=== PATIENT | male | born 1955 | race Caucasian/White ===

== ENCOUNTER 2025-03-27 11:27 | Outpatient (AMB) | payer MEDICARE, SELFPAY ==
--- OUTSIDE RECORDS SUMMARY | 2025-03-27 12:49 | XMS_ITS | Clinical Summary ---
Author Organization [facility] Address [address] [address] Phone Care Team Providers Care Accreditation Manager Name Role Phone Arun Luo MD Primary Care Provider Allergies No known active allergies Medications No known medications Active Problems No known active problems Social History Tobacco Use Types Packs/Day Years Used Date Smoking Tobacco: Never Smokeless Tobacco: Never Alcohol Use Standard Drinks/Week Comments Yes 0 (1 standard drink = 0.6 oz pur e alcohol) social Education Answer Date Recorded Are you interested in more education? Not on valeriano e 12/05/2022 Are you concerned about learning? Not on file 12/05/2022 No 12/05/2022 No 12/05/2022 Digital Access Answer Date Recorded No 01/05/2023 No 01/05/2023 No 01/05/2023 Reliable internet access at home? Not on file 01/05/2023 Device with a working camera? Not on file Comments No Sex and Gender Information Value Date Recorded Sex Assigned at Male 11/30/2018 11:43 AM EDT Legal Sex Male 10:46 AM EDT Gender Identity Male 11/30/2018 11:43 AM EDT Sexual Orientation Straight 11/30/2018 11 :43 AM EDT Last Filed Vital Signs Vital Sign Reading Time Taken Comments Blood Pressure 130/84 11/30/2018 5:37 PM EDT Pulse 67 11/30/2018 5:37 PM EDT Temperature 36.6 C (97.9 F) 11/30/2018 5:37 PM EDT Respiratory Rate 18 11/30/2018 5:37 PM EDT Oxygen Saturation 100% 11/30/2018 5:37 PM EDT Inhaled Oxygen Concentration - - Weight 104.3 kg (230 lb) 11/30/2018 11:39 AM EDT Height 180.3 cm (5' 11 ) 11/30/2018 11:39 AM EDT Body Mass Index 32.08 11/30/2018 11:39 AM EDT Plan of Treatment Not on file Medical Devices Not on file Insurance PPO EPO PPO EPO PPO EPO PPO EPO PPO EPO PPO EPO PPO EPO PPO EPO PPO EPO Member Subscriber Plan / Payer (Ef fective 2015-Present) Name:Ryan Forman Relation to Subscriber:Self Name:Ryan Forman Payer ID:[id number] (NAIC) Type:PPO Address: [facility] [id number] [place] [phone] Care Teams Accreditation Manager Relationship Specialty Start Date End Date Arun Luo MD PCP - General Internal Medicine 11/30/18 Additional Source Comments The information contained in this document represents components of the legal health record. It is not the complete legal health record.[facility]
--- OUTSIDE RECORDS SUMMARY | 2025-03-27 12:49 | XMS_ITS | Clinical Summary ---
Author Organization [facility] Address [address] [place] [address] Care Team Providers Care High Energy Forming Equipment Operator Name Role Phone Arun Luo Primary Care Provider [phone] Allergies No known active allergies Medications No known medications Active Problems No known active problems Social History Tobacco Use Types Packs/Day Years Used Date Smoking Tobacco: Never Smokeless Tobacco: Never Alcohol Use Standard Drinks/Week Comments Yes 0 (1 standard drink = 0.6 oz pur e alcohol) Intimate Partner Violence Answer Date R ecorded Fear of Current or Ex-Partner Not on file Emotionally Abused Not on file 03/31/2023 Physically Abused Not on file 03/31/2023 Sexually Abused Not on file 03/31/2023 Feel Safe at Home Not on file 03/31/2023 Sex and Gender Information Value Date Recorded Sex Assigned at Not on file Legal Sex Male 12:55 AM EDT Gender Identity Not on file Sexual Orientation Not on file Last Filed Vital Signs Vital Sign Reading Time Taken Comments Blood Pressure - - Pulse - - Temperature - - Respiratory Rate - - Oxygen Saturation - - Inhaled Oxygen Concentration - - Weight 86.2 kg (190 lb) 02/13/2014 1:28 PM EDT Height 182.9 cm (6') 02/13/2014 1:28 PM EDT Body Mass Index 25.77 02/13/2014 1:28 PM EDT Plan of Treatment Health Maintenance Due Date Last Done Comments Hepatitis C Screening 1955 DTaP/Tdap/Td (1 - Tdap) 11/20/1973 Pneumococcal 50+ years (1 of 1 - PCV) 11/20/2005 Zoster (Shingrix) (1 of 2) 11/20/2005 COVID-19 Vaccine ( - 2023-2 5 season) 2024 Influenza (#1) 2025 RSV (1 - 1-dose 75+ series) 11/20/2030 Abdominal Aorta Imaging Discontinued HPV Vaccine (No Doses Required) Completed Hep A Aged Out No longer eligi ble based on patient's age to complete this topic Hep B Aged Out No longer eligi ble based on patient's age to complete this topic Hib Aged Out No longer eligi ble based on patient's age to complete this topic Meningococcal ACWY Aged Out No longer eligible based on patient's age to complete this topic Zoster (Zostavax) Discontinued Insurance BC[employer] FEE FOR SERVICE PPO Care Teams High Energy Forming Equipment Operator Relationship Specialty Start Date End Date Arun Luo PCP - General 07/03/09
== END 2025-03-27 11:34 | disposition home or self-care (01) ==
LOC: HO.HMGAL 11:27
PROVIDERS: PCP Internal Medicine; Visit Provider Registered Nurse Emergency
DX: J30.89 Other allergic rhinitis (principal)
CPT/HCPCS: 95117; 95165

== ENCOUNTER 2025-04-17 09:37 | Outpatient (AMB) | payer MEDICARE, SELFPAY ==
--- OUTSIDE RECORDS SUMMARY | 2025-04-17 10:59 | XMS_ITS | Clinical Summary ---
Author Organization [facility] Address [address] [place] [id number] Care Team Providers Care Fire Control System Installer Name Role Phone Arun Luo Primary Care Provider [phone] Allergies No known active allergies Medications No [...] COVID-19 Vaccine ( - 2023-2 5 season) 2025 Influenza (#1) 2025 RSV (1 - 1-dose [...] [employer] FEE FOR SERVICE PPO Care Teams Fire Control System Installer Relationship Specialty Start Date End Date Arun Luo PCP - General 07/03/09
--- OUTSIDE RECORDS SUMMARY | 2025-04-17 10:59 | XMS_ITS | Clinical Summary ---
Author Organization [facility] Address [address] [address] Phone Care Team Providers Care Religious Assistant Name Role Phone Arun Luo MD Primary [...] Name:Ryan Forman Payer ID:[id number] (NAIC) Type:PPO Address: [facility] [id number] [place] [id number] Care Teams Religious Assistant Relationship Specialty Start Date End Date Arun Luo MD PCP - General Internal Medicine 11/30/18 Additional Source Comments The information contained in this document represents components of the legal health record. It is not the complete legal health record.[facility]
--- OUTSIDE RECORDS SUMMARY | 2025-04-17 10:59 | XMS_ITS | Encounter Summary ---
Author Organization [facility] Address [address] [id number] Care Team Providers Care Envelope Stuffer Name Role Phone Arun Luo Primary Care Provider [phone] Reason for Referral * OUTPT PROCEDURES AND DIAGNOSTICS (Routine) - Denied Specialty Diagnoses / Procedures Referred By Ashanti pope Referred To Contact Magnetic Resonance Imaging Diagnoses Patellar tendinitis of left knee Procedures REQUEST FOR MRI NON-FC Jaskaran Garcia MD Referral ID Status Reason Start Date Expiration Date V isits Requested Visits Authorized [id number] Denied Service Not Available at Clinic 03/04/2018 1 0 Encounter Details Date Type Department Care Team (Late st Contact Info) Description 03/04/2018 Orders Only [facility] Orthopedic Surgery-Entrance C [address] [place] [id number] Jaskaran Garcia MD Social History Tobacco Use Types Packs/Day Years Used Date Smoking Tobacco: Never Smokeless Tobacco: Never Alcohol Use Standard Drinks/Week Comments Yes 0 (1 standard drink = 0.6 oz pur e alcohol) Sex and Gender Information Value Date Recorded Sex Assigned at Not on file Legal Sex Male 12:55 AM EDT Gender Identity Not on file Sexual Orientation Not on file documented as of this encounter Plan of Treatment Scheduled Orders Name Type Priority Associated Diagnoses Orde r Schedule REQUEST FOR MRI NON-FC Imaging Routine Patellar tendinitis of left knee Ordered: 03/04/2018 documented as of this encounter Visit Diagnoses Diagnosis Patellar tendinitis of left knee Patellar tendinitis documented in this encounter Care Teams Envelope Stuffer Relationship Specialty Start Date End Date Arun Luo PCP - General 07/03/09 documented as of this encounter
== END 2025-04-17 09:38 | disposition home or self-care (01) ==
LOC: HO.HMGAL 09:37
PROVIDERS: PCP Internal Medicine; Visit Provider Registered Nurse Emergency
DX: J30.89 Other allergic rhinitis (principal)
CPT/HCPCS: 95117; 95165

== ENCOUNTER 2025-05-15 09:02 | Outpatient (AMB) | payer MEDICARE, SELFPAY ==
--- OUTSIDE RECORDS SUMMARY | 2025-05-15 10:04 | XMS_ITS | Encounter Summary ---
Author Organization [facility] Address [address] [id number] Care Team Providers Care Senior Court Office Assistant Name Role Phone Arun Luo Primary Care Provider [phone] Reason for Referral * OUTPT PROCEDURES AND DIAGNOSTICS (Routine) - Denied Specialty Diagnoses / Procedures Referred By Ashanti pope Referred To Contact Magnetic Resonance Imaging Diagnoses Patellar tendinitis of left knee Procedures REQUEST FOR MRI NON-FC Jaskaran Garcia MD Referral ID Status Reason Start Date Expiration Date V isits Requested Visits Authorized [id number] Denied Service Not Available at Clinic 03/04/2018 1 0 Encounter Details Date Type Department Care Team (Late st Contact Info) Description 03/04/2018 Orders Only [facility] Orthopedic Surgery-Entrance C [address] [place] [id number] Jaskaran Garcia MD Social History Tobacco Use [...] tendinitis documented in this encounter Care Teams Senior Court Office Assistant Relationship Specialty Start Date End Date Arun Luo PCP - General 07/03/09 documented as of this encounter
--- OUTSIDE RECORDS SUMMARY | 2025-05-15 10:04 | XMS_ITS | Clinical Summary ---
Author Organization [facility] Address [address] [place] [address] Care Team Providers Care Commercial Real Estate Underwriter Name Role Phone Arun Luo Primary Care Provider [phone] Allergies No known active allergies Medications No [...] [employer]BS FEE FOR SERVICE PPO Care Teams Commercial Real Estate Underwriter Relationship Specialty Start Date End Date Arun Luo PCP - General 07/03/09
--- OUTSIDE RECORDS SUMMARY | 2025-05-15 10:05 | XMS_ITS | Clinical Summary ---
Author Organization [facility] Address [address] [address] Phone Care Team Providers Care Device Engineer Name Role Phone Arun Luo MD Primary [...] Name:Ryan Forman Payer ID:[id number] (NAIC) Type:PPO Address: [facility] [id number] [place] [id number] Care Teams Device Engineer Relationship Specialty Start Date End Date Arun Luo MD PCP - General Internal Medicine 11/30/18 Additional Source Comments The information contained in this document represents components of the legal health record. It is not the complete legal health record.[facility]
== END 2025-05-15 09:45 | disposition home or self-care (01) ==
LOC: HO.HMGAL 09:02
PROVIDERS: PCP Internal Medicine; Visit Provider Registered Nurse Emergency
DX: J30.89 Other allergic rhinitis (principal)
CPT/HCPCS: 95117; 95165

== ENCOUNTER 2025-06-05 10:06 | Outpatient (AMB) | payer MEDICARE, SELFPAY ==
--- OUTSIDE RECORDS SUMMARY | 2025-06-05 12:03 | XMS_ITS | Encounter Summary ---
Author Organization [facility] Address [address] [id number] Care Team Providers Care Regional Safety Manager Name Role Phone Arun Luo Primary Care Provider [phone] Reason for Referral * OUTPT PROCEDURES AND DIAGNOSTICS (Routine) - Denied Specialty Diagnoses / Procedures Referred By Ashanti pope Referred To Contact Magnetic Resonance Imaging Diagnoses Patellar tendinitis of left knee Procedures REQUEST FOR MRI NON-FC Jaskaran Garcia MD Referral ID Status Reason Start Date Expiration Date V isits Requested Visits Authorized [id number] Denied Service Not Available at Clinic 03/04/2018 1 0 Encounter Details Date Type Department Care Team (Late st Contact Info) Description 03/04/[address] [facility] Orthopedic Surgery-Entrance C [address] [place] [id number] Jaskaran Garcia MD Social History Tobacco Use [...] tendinitis documented in this encounter Care Teams Regional Safety Manager Relationship Specialty Start Date End Date Arun Luo PCP - General 07/03/09 documented as of this encounter
--- OUTSIDE RECORDS SUMMARY | 2025-06-05 12:03 | XMS_ITS | Clinical Summary ---
Author Organization [facility] Address [address] [address] Phone Care Team Providers Care Farm Management Adviser Name Role Phone Arun Luo MD Primary [...] Name:Ryan Forman Payer ID:[id number] (NAIC) Type:PPO Address: [facility] [address] [place] [phone] Care Teams Farm Management Adviser Relationship Specialty Start Date End Date Arun Luo MD PCP - General Internal Medicine 11/30/18 Additional Source Comments The information contained in this document represents components of the legal health record. It is not the complete legal health record.[facility]
--- OUTSIDE RECORDS SUMMARY | 2025-06-05 12:03 | XMS_ITS | Clinical Summary ---
Author Organization [facility] Address [address] [place] [address] Care Team Providers Care Research Engineer Name Role Phone Arun Luo Primary Care Provider [phone] Allergies No known active allergies Medications No [...] of 2) 11/20/2005 COVID-19 Vaccine ( - 2024-2 6 season) 2025 Influenza (#1) 2025 RSV (1 [...] [employer] FEE FOR SERVICE PPO Care Teams Research Engineer Relationship Specialty Start Date End Date Arun Luo PCP - General 07/03/09
== END 2025-06-05 10:07 | disposition home or self-care (01) ==
LOC: HO.HMGAL 10:06
PROVIDERS: PCP Internal Medicine; Visit Provider Registered Nurse Emergency
DX: J30.89 Other allergic rhinitis (principal)
CPT/HCPCS: 95117; 95165

== ENCOUNTER 2025-06-26 11:13 | Outpatient (AMB) | payer MEDICARE, SELFPAY | END 2025-06-26 11:13 | disposition home or self-care (01) | LOC: HO.HMGAL 11:13 | PROVIDERS: PCP Internal Medicine; Visit Provider Registered Nurse Emergency | DX: J30.89 Other allergic rhinitis (principal) | CPT/HCPCS: 95117; 95165 ==